=== PATIENT | male | born 1990 | race Caucasian/White ===

== ENCOUNTER 2017-12-15 07:50 | Day surgery (SDC) | payer OTHER ==
[2017-12-15] MEDS ORDERED: LACTATED RINGER'S 1,000 ML IV (10:00)
[2017-12-15] MEDS ORDERED: DIPHENHYDRAMINE 50 MG INJ IV (12:00)
[2017-12-15] MEDS ORDERED: FENTAnyl 50 MCG/ML VIAL IV (12:00)
[2017-12-15] MEDS ORDERED: HYDROmorphONE 1 MG/5 ML IV SYRINGE IV (12:00)
[2017-12-15] MEDS ORDERED: MEPERIDINE 25 MG INJ IV (12:00)
[2017-12-15] MEDS ORDERED: ONDANSETRON 4 MG INJ IV (12:00)
[2017-12-15] MEDS ORDERED: OXYCODONE/ACETAMINOPHEN (5/325) TAB PO (12:00)
[2017-12-15] MEDS ORDERED: MIDAZOLAM 1 MG/ML 2 ML INJ ×2 (12:04→12:08)
[2017-12-15] MEDS ORDERED: PROPOFOL 20 ML ×2 (12:07→12:26)
[2017-12-15] MEDS ORDERED: LIDOCAINE 2% (SDV) 5 ML INJ (12:07)
[2017-12-15] MEDS ORDERED: ONDANSETRON 4 MG INJ (12:20)
[2017-12-15] MEDS ORDERED: DEXAMETHASONE 4 MG/ML 1 ML INJ (12:20)
== END 2017-12-15 14:05 | disposition home or self-care (01) ==
LOC: SDS 07:50
DX: R13.10 Dysphagia, unspecified (principal); J38.00 Paralysis of vocal cords and larynx, unspecified
CPT/HCPCS: 31526